=== PATIENT | male | born 1960 | race Caucasian/White ===

== ENCOUNTER 2019-12-03 17:07 | Emergency (ER) | payer OTHER ==
[2019-12-03 17:23] VITALS: BP 157/84; PULSE 109
[2019-12-03] MEDS: Sodium Chloride 0.9% 10 ML Syringe FLUSH PRN ×2 (17:42→18:43)
--- NOTE | 2019-12-03 17:42 | EDM.PDOC ---
ED HPI GENERAL MEDICAL PROBLEM - General Chief Complaint: Chest Pain Stated Complaint: FALL/RIB,ELBOW AND SHOULDER INJURY Time Seen by Provider: 12/03/19 17:16 Source of Information: Reports: Patient History Limitations: Reports: No Limitations - History of Present Illness INITIAL COMMENTS - FREE TEXT/NARRATIVE: The patient presents with left lower rib pain. He was on a ladder doing some work and it went out from under him and he fell and landed on the ladder with his left lower ribs. He has pain there and in the left upper abdomen. He also has some pain to the right clavicle. It knocked the wind out of him and it took a few minutes before he could take a deep breath. He has pain with deep breathing. He has some shortness of breath. He has no fever, chills, cough, nausea or vomiting. He did not hit his head or hurt his neck. Onset: Sudden Duration: Minutes: Location: Reports: Chest Quality: Reports: Sharp Severity: Severe Improves with: Reports: Immobilization Worsens with: Reports: Movement Context: Reports: Trauma Associated Symptoms: Reports: Chest Pain, Shortness of Breath. Denies: Cough, Fever/Chills, Headaches, Nausea/Vomiting Left Lower Chest Pain Score (Numeric/FACES): 8 - Related Data Allergies Allergy/AdvReac Type Severity Reaction Status Date / Time hydromorphone HCl Allergy Vomiting Verified 12/03/19 17:17 [From Dilaudid] Home Meds: Home Meds atorvaSTATin [Lipitor] 20 mg PO DAILY 05/21/15 [History] Hydrocodone/Acetaminophen [Hydrocodon-Acetaminophen 5-325] 1 - 2 each PO Q6HR PRN #20 tablet 12/03/19 [Rx] Past Medical History Cardiovascular History: Reports: High Cholesterol - Past Surgical History Other Cardiovascular Surgeries/Procedures: restless legs GI Surgical History: Reports: Appendectomy, Cholecystectomy Social & Family History - Tobacco Use Smoking Status *Q: Current Every Day Smoker Years of Tobacco use: 40 Packs/Tins Daily: 1.5 - Caffeine Use Caffeine Use: Reports: Soda - Recreational Drug Use Recreational Drug Use: No ED ROS GENERAL - Review of Systems Review Of Systems: See Below Constitutional: Reports: No Symptoms HEENT: Reports: No Symptoms Respiratory: Reports: Shortness of Breath. Denies: Cough Cardiovascular: Reports: Chest Pain Endocrine: Reports: No Symptoms GI/Abdominal: Reports: Abdominal Pain. Denies: Diarrhea, Nausea, Vomiting ED EXAM, GENERAL - Physical Exam Exam: See Below Exam Limited By: No Limitations General Appearance: Alert, No Apparent Distress Ears: Normal External Exam Nose: Normal Inspection Head: Atraumatic, Normocephalic Neck: Normal Inspection, Supple, Non-Tender Respiratory/Chest: No Respiratory Distress, Lungs Clear, Normal Breath Sounds, Other (Pain upon palpation to the left lower ribs) Cardiovascular: Regular Rate, Rhythm, No Edema, No Murmur GI/Abdominal: Soft, No Organomegaly, No Mass, Tender (Moderate tenderness to the left upper abdomen) Back Exam: Normal Inspection Extremities: Other (Pain upon palpation to the right clavicle) Neurological: Alert, Oriented, No Motor/Sensory Deficits Course - Vital Signs Last Recorded V/S: Last Vital Signs Temp 98.4 F 12/03/19 17:18 Pulse 109 H 12/03/19 17:18 Resp 14 12/03/19 17:18 BP 157/84 H 12/03/19 17:18 Pulse Ox 96 12/03/19 17:18 - Orders/Labs/Meds Orders: Active Orders 24 hr Category Date Time Status Cardiac Monitoring [RC] . DIRECTED Care 12/03/19 17:21 Active Incentive Spirometry [RT Incentive Spirometry] [RC] Care 12/03/19 19:30 Ordered ASDIRECTED Peripheral IV Care [RC] . DIRECTED Care 12/03/19 17:22 Active Ketorolac [Toradol] Med 12/03/19 19:29 Once 30 mg IVPUSH ONETIME ONE Sodium Chloride 0.9% [Saline Flush] Med 12/03/19 17:21 Active 10 ml FLUSH ASDIRECTED PRN Peripheral IV Insertion Adult [OM.PC] Stat Oth 12/03/19 17:21 Ordered Medication Orders Sodium Chloride (Saline Flush) 10 ml FLUSH ASDIRECTED PRN PRN Reason: Keep Vein Open Last Admin: 12/03/19 18:43 Dose: 10 ml Admin: 12/03/19 17:42 Dose: 10 ml Labs: Laboratory Tests 12/03/19 12/03/19 Range/Units 17:40 17:40 WBC 16.69 H (4.23-9.07) K/mm3 RBC 5.19 (4.63-6.08) M/mm3 Hgb 15.7 (13.7-17.5) gm/dl Hct 44.4 (40.1-51.0) % MCV 85.5 (79.0-92.2) fl MCH 30.3 (25.7-32.2) pg MCHC 35.4 (32.2-35.5) g/dl RDW Std Deviation 40.9 (35.1-43.9) fL Plt Count 364 H (163-337) K/mm3 MPV 9.0 L (9.4-12.3) fl Neut % (Auto) 72.7 H (34.0-67.9) % Lymph % (Auto) 17.9 L (21.8-53.1) % [place] % (Auto) 8.1 (5.3-12.2) % Eos % (Auto) 0.9 (0.8-7.0) Baso % (Auto) 0.4 (0.1-1.2) % Neut # (Auto) 12.14 H (1.78-5.38) K/mm3 Lymph # (Auto) 2.98 (1.32-3.57) K/mm3 [place] # (Auto) 1.35 H (0.30-0.82) K/mm3 Eos # (Auto) 0.15 (0.04-0.54) K/mm3 Baso # (Auto) 0.07 (0.01-0.08) K/mm3 Manual Slide Review Abnormal smear Sodium 141 (136-145) mEq/L Potassium 3.6 (3.5-5.1) mEq/L Chloride 106 (98-107) mEq/L Carbon Dioxide 22 (21-32) mEq/L Anion Gap 16.6 H (5-15) BUN 13 (7-18) mg/dL Creatinine 1.0 (0.7-1.3) mg/dL Est Cr Clr Drug Dosing 80.10 mL/min Estimated GFR (MDRD) > 60 (>60) mL/min BUN/Creatinine Ratio 13.0 L (14-18) Glucose 88 (80-115) mg/dL Calcium 9.0 (8.5-10.1) mg/dL Total Bilirubin 0.3 (0.2-1.0) mg/dL AST 25 (15-37) U/L ALT 29 (16-63) U/L Alkaline Phosphatase 114 (46-116) U/L Total Protein 7.7 (6.4-8.2) g/dl Albumin 4.3 (3.4-5.0) g/dl Globulin 3.4 gm/dL Albumin/Globulin Ratio 1.3 (1-2) Meds: Medications Generic Name Dose Route Start Last Admin Trade Name Khoa PRN Reason Stop Dose Admin Sodium Chloride 10 ml 12/03/19 17:21 12/03/19 18:43 Saline Flush FLUSH 10 ml ASDIRECTED PRN Administration Keep Vein Open Discontinued Medications Generic Name Dose Route Start Last Admin Trade Name Freq PRN Reason Stop Dose Admin Fentanyl 50 mcg 12/03/19 18:56 12/03/19 19:05 Sublimaze IVPUSH 12/03/19 18:57 50 mcg ONETIME ONE Administration Iopamidol 100 ml 12/03/19 18:33 12/03/19 18:43 Isovue-300 (61%) IVPUSH 12/03/19 18:34 100 ml ONETIME ONE Administration - Re-Assessments/Exams Free Text/Narrative Re-Assessment/Exam: 12/03/19 17:43 I ordered an IV saline lock, labs, CT of his chest, abdomen and pelvis. 12/03/19 18:23 His WBC is elevated at 16.69. His platelets are a little elevated at 364. His anion gap is elevated at 16.6. 12/03/19 19:15 He had more pain so I ordered dilaudid 0.5mg IV. 12/03/19 19:[address] shows a left 7th rib fracture. The CT of her abdomen and pelvis shows nothing acute. I will give him some toradol and an incentive spyrometer. I will also get him on some thing for pain. Departure - Departure Time of Disposition: 19:40 Disposition: Home, Self-Care 01 Condition: Good Clinical Impression: Fall Qualifiers: Encounter type: initial encounter Qualified Code(s): W19.XXXA - Unspecified fall, initial encounter Fracture, rib Qualifiers: Encounter type: initial encounter Rib fracture type: single rib Fracture type: closed Laterality: left Qualified Code(s): S22.32XA - Fracture of one rib, left side, initial encounter for closed fracture Prescriptions: Hydrocodone/Acetaminophen [Hydrocodon-Acetaminophen 5-325] 1 - 2 each PO Q6HR PRN #20 tablet PRN Reason: Pain Referrals: Eliu Quinones Jr, MD [Primary Care Provider] - Forms: ED Department Discharge, ED Return to Work/School Form Additional Instructions: Ice the areas that hurt for 15 minutes 3 times per day for 2 days. Take tylenol or motrin as needed for pain. If that does not help, try the hydrocodone. Use the incentive spyrometer 10 breaths every other hour while awake for 5 days. Please return if you are worse such as more pain, shortness of breath, fever or chills. Sepsis Event Note - Evaluation Sepsis Screening Result: No Definite Risk - Focused Exam Vital Signs: Vital Signs Temp Pulse Resp BP Pulse Ox 12/03/19 17:18 98.4 F 109 H 14 157/84 H 96 Date Exam was Performed: 12/03/19 Time Exam was Performed: 19:33 - My Orders Last 24 Hours: My Active Orders 12/03/19 17:21 Cardiac Monitoring [RC] . DIRECTED Sodium Chloride 0.9% [Saline Flush] 10 ml FLUSH ASDIRECTED PRN Peripheral IV Insertion Adult [OM.PC] Stat 12/03/19 17:22 Peripheral IV Care [RC] . DIRECTED 12/03/19 19:29 Ketorolac [Toradol] 30 mg IVPUSH ONETIME ONE 12/03/19 19:30 Incentive Spirometry [RT Incentive Spirometry] [RC] ASDIRECTED - Assessment/Plan Last 24 Hours: My Active Orders 12/03/19 17:21 Cardiac Monitoring [RC] . DIRECTED Sodium Chloride 0.9% [Saline Flush] 10 ml FLUSH ASDIRECTED PRN Peripheral IV Insertion Adult [OM.PC] Stat 12/03/19 17:22 Peripheral IV Care [RC] . DIRECTED 12/03/19 19:29 Ketorolac [Toradol] 30 mg IVPUSH ONETIME ONE 12/03/19 19:30 Incentive Spirometry [RT Incentive Spirometry] [RC] ASDIRECTED
[2019-12-03] MEDS ORDERED: Iopamidol 612 MG/ML 100 ML Bottle IVPUSH ONE (18:33)
[2019-12-03] MEDS ORDERED: fentaNYL 100 MCG/2 ML SDV IVPUSH ONE (18:56)
--- NOTE | 2019-12-03 19:18 | CT ---
CT chest Technique: Multiple axial sections were obtained from above the lung apices inferiorly through the lung bases. Intravenous contrast was utilized. Findings: Aorta shows atherosclerotic calcification without aneurysm. Mild coronary artery calcification is seen. No pericardial thickening is seen. Mediastinum shows no hematoma. No pericardial thickening is seen. Lungs show no acute parenchymal change. Mild dependent atelectasis is seen posteriorly within both lung bases. No pleural effusion is seen. Small granuloma is noted within the right upper lung which appears calcified. No pulmonary contusion or pleural effusions are seen. No pneumothorax is identified. Bone window settings were reviewed. Scattered degenerative endplate spurring is noted within the spine. Scattered disc space narrowing is noted within the spine. No vertebral compression deformities are appreciated. Reconstructed sagittal images the sternum appear intact. Nondisplaced fracture is felt to be present within the left seventh rib. No additional rib fracture is definitely appreciated. Impression: 1. Nondisplaced rib fracture is felt to be present within the left seventh rib. 2. Other findings which are believed to be incidental. 3. No other acute finding is appreciated. Diagnostic code #3 Study was dictated in [place] Standard Time CT abdomen and pelvis Technique: Multiple axial sections were obtained from above the dome of the diaphragm inferiorly through the pubic symphysis. Intravenous contrast was utilized. No oral contrast has been given. Comparison: No prior abdominal imaging is available. Findings: Small low-density finding is noted within the left lobe of the liver measuring 5 mm. This is too small to characterize by Hounsfield unit measurements but most likely represents a cyst as no other abnormality is appreciated within the liver. Spleen appears within normal limits. Adrenal glands show no nodule. Pancreas appears within normal limits. Kidneys show symmetric contrast enhancement without hydronephrosis or mass. Small cyst is noted within the mid right kidney measuring 1.4 cm. Small cyst also is noted within the lower left kidney measuring 8 mm. No additional abnormality is appreciated within the kidneys. Surgical clips are seen from prior cholecystectomy. Aorta shows atherosclerotic change which continues into the iliac vessels without aneurysm. No retroperitoneal adenopathy or mesenteric abnormalities are seen. No pelvic mass or adenopathy is seen. Prostate gland is enlarged. No free fluid or inflammatory change is seen. Appendix is not visualized. No bowel dilatation is appreciated. No free fluid or inflammatory change is appreciated. Bone window settings were reviewed which shows mild degenerative change within the spine. Vacuum phenomena is noted within the sacroiliac joints. Nothing acute is appreciated within the visualized osseous structures. Impression: 1. Findings which are believed to be incidental as noted above. 2. Nothing acute is appreciated on CT study of the abdomen and pelvis. Diagnostic code #2 Study was dictated in [place] Standard Time
[2019-12-03] MEDS ORDERED: Ketorolac 30 MG/ML SDV IVPUSH ONE (19:29)
== END 2019-12-03 19:51 | disposition home or self-care (01) ==
LOC: JD.ED 17:07
DX: S22.32XA Fracture of one rib, left side, initial encounter for closed fracture (principal); E78.00 Pure hypercholesterolemia, unspecified; F17.210 Nicotine dependence, cigarettes, uncomplicated; Z79.899 Other long term (current) drug therapy; Z88.5 Allergy status to narcotic agent; W11.XXXA Fall on and from ladder, initial encounter; Y93.89 Activity, other specified; Y92.89 Other specified places as the place of occurrence of the external cause; Y99.0 Civilian activity done for income or pay
CPT/HCPCS: 36415; 71260; 74177; 80053; 85025; 96374; 96375; 99284; J1885; J3010; Q9967

== ENCOUNTER 2021-01-26 15:06 | Emergency (ER) | payer OTHER ==
[2021-01-26] MEDS ORDERED: Sodium Chloride 0.9% 10 ML Syringe FLUSH PRN (15:42)
--- NOTE | 2021-01-26 16:09 | CR ---
Chest: Portable view of the chest was obtained. Comparison: Prior chest CT study of 12/03/19. Heart size and mediastinum are within normal limits. Small nodule is noted within the right upper lung most likely representing granuloma. Lungs otherwise are clear. No acute parenchymal change is seen. Heart size and mediastinum are normal. Bony structures are without acute abnormality. Impression: 1. Findings as noted above. Nothing acute is seen. Diagnostic code #2
--- NOTE | 2021-01-26 16:12 | EDM.PDOC ---
ED HPI GENERAL MEDICAL PROBLEM - General Chief Complaint: Cardiovascular Problem Stated Complaint: RAPID HEART BEAT Time Seen by Provider: 01/26/21 15:14 Source of Information: Reports: Patient History Limitations: Reports: No Limitations - History of Present Illness INITIAL COMMENTS - FREE TEXT/NARRATIVE: 60-year-old male presents to the emergency department today after he developed chest pressure while at work. 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 He states he has never had this type of sensation in the past so he came to the emergency department to be evaluated. Night any shortness of breath or diaphoresis or nausea associated with the event. Denied any headache at the time however he feels like he is starting to develop a headache at the time of my assessment. All other symptoms have otherwise resolved at the time of my interview. Patient does admit to smoking half pack to 1 pack a day for almost 40 years. He states he drinks 2-1/2 L of Pepsi soda daily. He denies any alcohol intake or recreational drug use. - Related Data Allergies Allergy/AdvReac Type Severity Reaction Status Date / Time hydromorphone HCl Allergy Vomiting Verified 12/03/19 17:17 [From Dilaudid] Home Meds: Home Meds atorvaSTATin [Lipitor] 20 mg PO DAILY 05/21/15 [History] Past Medical History Cardiovascular History: Reports: High Cholesterol - Past Surgical History Other Cardiovascular Surgeries/Procedures: restless legs GI Surgical History: Reports: Appendectomy, Cholecystectomy, Hernia, Abdominal Other GI Surgeries/Procedures: heernia surgery with mesh Social & Family History - Tobacco Use Tobacco Use Status *Q: Current Every Day Tobacco User Years of Tobacco use: 44 Packs/Tins Daily: 1 - Caffeine Use Caffeine Use: Reports: Soda Other Caffeine Use: 2 1/2 liters per day - Recreational Drug Use Recreational Drug Use: No ED ROS GENERAL - Review of Systems Review Of Systems: See Below Constitutional: Reports: No Symptoms. Denies: Fever, Chills, Diaphoresis HEENT: Reports: No Symptoms Respiratory: Reports: No Symptoms. Denies: Shortness of Breath, Pleuritic Chest Pain, Cough Cardiovascular: Reports: Chest Pain (Described as a intermittent pressure). Denies: Dyspnea on Exertion, Edema, Lightheadedness, Palpitations Endocrine: Reports: No Symptoms GI/Abdominal: Reports: No Symptoms : Reports: No Symptoms Musculoskeletal: Reports: No Symptoms Skin: Reports: No Symptoms Neurological: Reports: No Symptoms Psychiatric: Reports: No Symptoms Hematologic/Lymphatic: Reports: No Symptoms Immunologic: Reports: No Symptoms ED EXAM, GENERAL - Physical Exam Exam: See Below Exam Limited By: No Limitations General Appearance: Alert, WD/WN, No Apparent Distress Ears: Normal External Exam, Hearing Grossly Normal Nose: Normal Inspection Throat/Mouth: Normal Inspection, Normal Lips, Normal Voice, No Airway Compromise Head: Atraumatic, Normocephalic Neck: Normal Inspection, Supple Respiratory/Chest: No Respiratory Distress, Lungs Clear, Normal Breath Sounds, No Accessory Muscle Use, Chest Non-Tender Cardiovascular: Normal Peripheral Pulses, Regular Rate, Rhythm, No Edema, No Murmur, Tachycardia (115-120) Peripheral Pulses: 2+: Radial (L), Radial (R) GI/Abdominal: Normal Bowel Sounds, Soft, Non-Tender, No Distention (Male) Exam: Deferred Rectal (Males) Exam: Deferred Back Exam: Normal Inspection, Full Range of Motion Extremities: Normal Inspection, Normal Range of Motion, Non-Tender, No Pedal Edema, Normal Capillary Refill Neurological: Alert, Oriented, Normal Cognition Psychiatric: Normal Affect, Normal Mood Skin Exam: Warm, Dry, Intact, Normal Color, No Rash Lymphatic: No Adenopathy #1 Interpretation EKG Date: 01/26/21 Time: 15:12 Rhythm: NSR Rate (Beats/Min): 121 [place]: Normal P-Wave: Present QRS: Normal ST-T: Normal QT: Normal Comparison: NA - No Prior EKG EKG Interpretation Comments: Per Dr. Trotter interpretation: Sinus tachycardia at 121 bpm; early R wave transitionconsider right ventricular hypertrophy/septal hypertrophy; left atrial hypertrophy Course - Vital Signs Text/Narrative:: At the time of my assessment, the patient denies any chest pressure or chest pain. His heart rate is currently in the 1 teens in a sinus rhythm and he denies feeling any palpitations associated with this. Denies any nausea, vomiting, diarrhea or any recent fever or chills. Denies that the chest pressure he had radiated into his shoulder, jaw, or down his arms. States that he had a similar episode of this couple of weeks ago however he contributed it to indigestion for which he just took some Zantac and states it went away. I have ordered chest x-ray and an EKG on this patient. Last Recorded V/S: Last Vital Signs Temp 97.7 F 01/26/21 15:18 Pulse 115 H 01/26/21 15:18 Resp 20 01/26/21 15:18 BP 144/103 H 01/26/21 15:18 Pulse Ox 96 01/26/21 15:18 - Orders/Labs/Meds Orders: Active Orders 24 hr Category Date Time Status Sodium Chloride 0.9% [Saline Flush] Med 01/26/21 15:42 Active 10 ml FLUSH ASDIRECTED PRN Saline Lock Insert [OM.PC] Stat Oth 01/26/21 15:42 Ordered Medication Orders Sodium Chloride (Sodium Chloride 0.9% 10 Ml Syringe) 10 ml FLUSH ASDIRECTED PRN PRN Reason: Keep Vein Open Labs: Laboratory Tests 01/26/21 01/26/21 01/26/21 Range/Units 16:04 16:04 16:04 WBC 15.32 H (4.23-9.07) K/mm3 RBC 5.70 (4.63-6.08) M/mm3 Hgb 16.8 (13.7-17.5) gm/dl Hct 48.7 (40.1-51.0) % MCV 85.4 (79.0-92.2) fl MCH 29.5 (25.7-32.2) pg MCHC 34.5 (32.2-35.5) g/dl RDW Std Deviation 40.5 (35.1-43.9) fL Plt Count 332 (163-337) K/mm3 MPV 9.0 L (9.4-12.3) fl Neut % (Auto) 70.7 H (34.0-67.9) % Lymph % (Auto) 20.8 L (21.8-53.1) % [place] % (Auto) 7.2 (5.3-12.2) % Eos % (Auto) 0.8 (0.8-7.0) Baso % (Auto) 0.4 (0.1-1.2) % Neut # (Auto) 10.82 H (1.78-5.38) K/mm3 Lymph # (Auto) 3.19 (1.32-3.57) K/mm3 [place] # (Auto) 1.11 H (0.30-0.82) K/mm3 Eos # (Auto) 0.12 (0.04-0.54) K/mm3 Baso # (Auto) 0.06 (0.01-0.08) K/mm3 Manual Slide Review Normal smear D-Dimer, Quantitative 0.30 (0.19-0.50) mg/L Sodium 143 (136-145) mEq/L Potassium 3.7 (3.5-5.1) mEq/L Chloride 107 (98-107) mEq/L Carbon Dioxide 24 (21-32) mEq/L Anion Gap 15.7 H (5-15) BUN 10 (7-18) mg/dL Creatinine 0.9 (0.7-1.3) mg/dL Est Cr Clr Drug Dosing 87.87 mL/min Estimated GFR (MDRD) > 60 (>60) mL/min BUN/Creatinine Ratio 11.1 L (14-18) Glucose 88 (80-115) mg/dL Calcium 8.9 (8.5-10.1) mg/dL Magnesium 2.2 (1.8-2.4) mg/dl Total Bilirubin 0.3 (0.2-1.0) mg/dL AST 22 (15-37) U/L ALT 33 (16-63) U/L Alkaline Phosphatase 114 (46-116) U/L Troponin I < 0.017 (0.00-0.056) ng/mL C-Reactive Protein < 0.2 (<1.0) mg/dL Total Protein 7.3 (6.4-8.2) g/dl Albumin 4.0 (3.4-5.0) g/dl Globulin 3.3 gm/dL Albumin/Globulin Ratio 1.2 (1-2) TSH 3rd Generation 2.106 (0.358-3.74) uIU/mL Meds: Medications Generic Name Dose Route Start Last Admin Trade Name Freq PRN Reason Stop Dose Admin Sodium Chloride 10 ml 01/26/21 15:42 Sodium Chloride 0.9% 10 Ml Syringe FLUSH ASDIRECTED PRN Keep Vein Open - Re-Assessments/Exams Free Text/Narrative Re-Assessment/Exam: 01/26/21 16:17 Radiologist impression portable view of the chest: Heart size and mediastinum are within normal limits. Small nodule is noted within the right upper lung most likely representing granuloma. Lungs otherwise are clear. No acute parenchymal changes seen. Heart size and mediastinum are normal. Bony structures are without acute abnormality. 01/26/21 17:08 Hematology reveals a WBC of 15.32, hemoglobin 16.8, hematocrit 48.7, platelet co unt 332, neutrophil percentage 70.7 Coagulation reveals a D-dimer of 0.30 Chemistry reveals a sodium of 143, potassium of 3.7, anion gap 15.7, BUN 10, creatinine 0.9, glucose 88, magnesium 2.2, troponin less than 0.017, C-reactive protein less than 0.2, TSH 2.106 01/26/21 17:30 Elevated white cell count is likely due to a stress response however after visiting with the patient he states that he has had an elevated white count for many many years and has even been evaluated for having cancer. His regular physician, Dr. Quinones, is aware of this. I spoke with the patient at length regarding the need to change his current lifestyle of excessive caffeine and smoking. At the time of my assessment patient's heart rate is down to 101 on the monitor in a sinus rhythm and his blood pressure is 154/88. Patient will be discharged to home with recommendations that he follow-up with Dr. Quinones in the next week for further evaluation. Departure - Departure Time of Disposition: 17:32 Disposition: Home, Self-Care 01 Condition: Good Clinical Impression: Chest pain Qualifiers: Chest pain type: unspecified Qualified Code(s): R07.9 - Chest pain, unspecified Instructions: Nonspecific Chest Pain, Adult, [id number] Referrals: Eliu Quinones Jr, MD [Primary Care Provider] - Forms: ED Department Discharge Additional Instructions: You were seen in the emergency department today with complaints of chest pain that started while you are at work. Full cardiac work-up was completed which included labs, EKG and a chest x-ray. These were all essentially unremarkable however you both blood cell count was elevated and this is likely due to a stress response. Although you did then share with me that your white cell count has been elevated for quite some time and your primary care physician is aware. Recommend that you decrease your caffeine intake and drink more water and cut back and/or stop smoking. Also recommend that you follow-up with your primary care physician in the next week to 10 days for a follow-up evaluation from this ER visit. Should your condition worsen or change, do not hesitate returning to the emergency department. Sepsis Event Note (ED) - Evaluation Sepsis Screening Result: No Definite Risk - Focused Exam Vital Signs: Vital Signs Temp Pulse Resp BP Pulse Ox 01/26/21 15:18 97.7 F 115 H 20 144/103 H 96 - My Orders Last 24 Hours: My Active Orders 01/26/21 15:42 Sodium Chloride 0.9% [Saline Flush] 10 ml FLUSH ASDIRECTED PRN Saline Lock Insert [OM.PC] Stat - Assessment/Plan Last 24 Hours: My Active Orders 01/26/21 15:42 Sodium Chloride 0.9% [Saline Flush] 10 ml FLUSH ASDIRECTED PRN Saline Lock Insert [OM.PC] Stat
[2021-01-26 17:55] VITALS: BP 156/89; PULSE 98
== END 2021-01-26 17:45 | disposition home or self-care (01) ==
LOC: JD.ED 15:06
DX: R07.9 Chest pain, unspecified (principal); R00.0 Tachycardia, unspecified; E78.00 Pure hypercholesterolemia, unspecified; Z72.0 Tobacco use; Z79.899 Other long term (current) drug therapy; Z88.5 Allergy status to narcotic agent
CPT/HCPCS: 36415; 71045; 71045-26; 80053; 83735; 84443; 84484; 85025; 85379; 86140; 93010; 99284; 99285-25

== ENCOUNTER 2022-09-20 09:30 | Emergency (ER) | payer OTHER ==
[2022-09-20] MEDS ORDERED: Sodium Chloride 0.9% 10 ML Syringe FLUSH PRN (09:34)
[2022-09-20] MEDS ORDERED: Aspirin 81 MG Tab.Chew PO ONE (09:34)
[2022-09-20] MEDS ORDERED: fentaNYL 100 MCG/2 ML SDV ONE (09:39)
[2022-09-20] MEDS ORDERED: fentaNYL 100 MCG/2 ML SDV IVPUSH ONE ×2 (09:41→10:02)
[2022-09-20] MEDS ORDERED: Tenecteplase 50 MG Kit IV ONE (09:54)
[2022-09-20] MEDS ORDERED: Heparin Sodium/D5W 500 ML ONE (09:59)
[2022-09-20] MEDS ORDERED: Heparin Sodium/D5W 25,000 UNITS/500 ML BAG IV SCH (10:00)
[2022-09-20] MEDS ORDERED: Heparin Sodium 5,000 Units/ML Vial ONE (10:01)
[2022-09-20] MEDS: fentaNYL 100 MCG/2 ML SDV IVPUSH ONE (10:02)
[2022-09-20] MEDS ORDERED: Heparin Sodium 5,000 Units/ML Vial IVPUSH ONE (10:15)
[2022-09-20] MEDS ORDERED: Ondansetron 8 MG in Sodium Chloride 0.9% 50 ML IV ONE (10:30)
[2022-09-20 11:35] VITALS: BP 142/81; PULSE 82
[2022-09-21] MEDS: fentaNYL 100 MCG/2 ML SDV IVPUSH ONE (15:36)
== END 2022-09-20 11:03 ==
LOC: JD.ED 09:30
DX: I21.19 ST elevation (STEMI) myocardial infarction involving other coronary artery of inferior wall (principal); E78.00 Pure hypercholesterolemia, unspecified; F17.210 Nicotine dependence, cigarettes, uncomplicated; Z88.6 Allergy status to analgesic agent; Z79.899 Other long term (current) drug therapy; Z90.49 Acquired absence of other specified parts of digestive tract
CPT/HCPCS: 36415; 71045; 80053; 83735; 84484; 85025; 85379; 85610; 92977; 93005; 96365; 96368; 96375; 99285; A9270; J1644; J2405; J3010; J3101; J3490

== ENCOUNTER 2023-01-24 14:48 | Emergency (ER) | payer OTHER ==
[2023-01-24] MEDS ORDERED: Sodium Chloride 0.9% 10 ML Syringe FLUSH PRN ×2 (15:16→16:19)
[2023-01-24] MEDS ORDERED: Aspirin 81 MG Tab.Chew PO ONE (15:16)
[2023-01-24] MEDS ORDERED: Iopamidol 755 Mg/ML 100 ML Bottle IVPUSH ONE (16:19)
[2023-01-24] MEDS ORDERED: Sodium Chloride 0.9% 100 ML IV SCH (16:30)
[2023-01-24 18:25] VITALS: BP 138/74; PULSE 90
== END 2023-01-24 18:20 | disposition home or self-care (01) ==
LOC: JD.ED 14:48
DX: R00.2 Palpitations (principal); E78.00 Pure hypercholesterolemia, unspecified; F17.210 Nicotine dependence, cigarettes, uncomplicated; Z88.6 Allergy status to analgesic agent; Z79.899 Other long term (current) drug therapy; Z90.49 Acquired absence of other specified parts of digestive tract
CPT/HCPCS: 36415; 71046; 71275; 80053; 83880; 84484; 85025; 85379; 93005; 93246; 99285; A9270; J3490; Q9967; 93010; 99284

== ENCOUNTER 2023-11-14 11:17 | Emergency (ER) | payer OTHER ==
[2023-11-14] MEDS ORDERED: Sodium Chloride 0.9% 10 ML Syringe FLUSH PRN (11:33)
[2023-11-14 12:03] LABS: BASOPHILS ABSOLUTE AUTO 0.1 K/mm3 (0.0-0.2); BASOPHILS PERCENT AUTO 0.7 % (0.0-1.0); EOSINOPHILS ABSOLUTE AUTO 0.1 K/mm3 (0.0-0.4); EOSINOPHILS PERCENT AUTO 0.9 % (0.0-6.0); HEMATOCRIT 45.9 % (42.0-52.0); HEMOGLOBIN 16.1 gm/dl (14.0-18.0); IMMATURE GRAN ABSOLUTE AUTO 0.04 K/mm3 (0.00-0.05); IMMATURE GRAN PERCENT AUTO 0.4 % (0.0-0.4); LYMPHOCYTES ABSOLUTE AUTO 2.6 K/mm3 (1.0-4.8); LYMPHOCYTES PERCENT AUTO 23.8 % (24.0-44.0); MEAN CORPUSCULAR HEMOGLOBIN 30.1 pg (28.0-32.0); MEAN CORPUSCULAR HGB CONC 35.1 g/dl (32.0-36.0); MEAN PLATELET VOLUME 9.2 fl (9.4-12.4); MONOCYTES ABSOLUTE AUTO 0.7 K/mm3 (0.0-0.8); MONOCYTES PERCENT AUTO 6.7 % (0.0-8.0); NEUTROPHILS ABSOLUTE AUTO 7.3 K/mm3 (1.8-7.7); NEUTROPHILS PERCENT AUTO 67.5 % (41.0-71.0); PLATELET COUNT,PLT 376 K/mm3 (150-400); RED BLOOD CELL COUNT 5.34 M/mm3 (4.52-5.90); WHITE BLOOD CELL COUNT,WBC 10.86 K/mm3 (3.9-11.3)
[2023-11-14 12:23] LABS: A/G RATIO 1.1 (1-2); ALBUMIN 3.7 g/dl (3.4-5.0); ANION GAP 14.1 (5-15); BILIRUBIN TOTAL 0.5 mg/dL (0.2-1.0); BUN/CREATININE RATIO 9.2 (14-18); CALCIUM 8.8 mg/dL (8.5-10.1); CREATININE 1.2 mg/dL (0.7-1.3); EST CRCL DRUG DOSING (CG) 60.17 mL/min; POTASSIUM,K 4.1 mEq/L (3.5-5.1); PROTEIN TOTAL,TP 7.1 g/dl (6.4-8.2)
[2023-11-14 13:17] VITALS: BP 127/70; PULSE 55
== END 2023-11-14 13:15 | disposition home or self-care (01) ==
LOC: JD.ED 11:17
DX: R07.89 Other chest pain (principal); I10 Essential (primary) hypertension; E78.00 Pure hypercholesterolemia, unspecified; I25.2 Old myocardial infarction; J44.9 Chronic obstructive pulmonary disease, unspecified; F17.210 Nicotine dependence, cigarettes, uncomplicated; Z90.49 Acquired absence of other specified parts of digestive tract; Z79.82 Long term (current) use of aspirin; Z79.02 Long term (current) use of antithrombotics/antiplatelets; Z79.899 Other long term (current) drug therapy; Z91.048 Other nonmedicinal substance allergy status; Z88.5 Allergy status to narcotic agent
CPT/HCPCS: 36415; 71046; 80053; 84484; 85025; 85379; 93005; 99285; J3490; 93010; 99284